=== PATIENT | male | born 1970 | race African-American/Black ===

== ENCOUNTER → 2023-10-11 09:28 | Outpatient (CLI) | payer OTHER, SELFPAY ==
[2023-10-11 10:16] LABS: Add Manual Diff / Slide Review NO; Basophils Absolute Auto 0 /uL (0-100); Basophils Percent Auto 0.6 % (0-2); Eosinophils Absolute Auto 500 /uL (0-450); Eosinophils Percent Auto 7.7 % (2-4); Hematocrit 39.8 % (41-53); Hemoglobin 13.5 g/dL (13.5-17.5); Lymphocytes Absolute Auto 1200 /uL (1100-4500); Lymphocytes Percent Auto 18.6 % (25-40); Mean Corpuscular HGB Conc 33.9 % (30-36); Mean Corpuscular Hemoglobin 29.9 PG (26-34); Mean Corpuscular Volume 88.1 fL (80-100); Monocytes Absolute Auto 500 /uL (0-900); Monocytes Percent Auto 8.6 % (3-14); Neutrophils Absolute Auto 4000 /uL (1500-7000); Neutrophils Percent Auto 64.5 % (50-75); Platelet Count 274 X10^3/uL (150-400); Red Blood Cell Count 4.51 X10^6/uL (4.5-5.9); Red Cell Distribution Width 13.9 % (11.6-14.8); White Blood Cell Count 6.3 X10^3/uL (4.5-11.0)
[2023-10-11 10:39] LABS: Hemoglobin A1C% w Est Avg Glu 4.9 % (4.0-6.0)
[2023-10-11 10:49] LABS: Alanine Aminotransferase 22 IU/L (<50); Albumin 3.7 g/dL (3.5-5.0); Albumin Globulin Ratio 1.2 (1.0-2.8); Alkaline Phosphatase 71 U/L (38-126); Aspartate Aminotransferase 21 IU/L (17-59); BUN Creatinine Ratio 19.8 (6-22); Bilirubin Total 0.5 mg/dL (0.2-1.3); Blood Urea Nitrogen 21 mg/dL (9-20); Calcium 9.4 mg/dL (8.4-10.2); Carbon Dioxide 31 mmol/L (22-32); Chloride 101 mmol/L (98-107); Cholesterol 159 mg/dL (140-199); Estimated Glomerular Filt Rate > 60 mL/min (>60); Globulin 3.2 g/dL (1.7-4.1); Glucose 93 mg/dL (70-100); HDL Cholesterol 38 mg/dL (40-60); HEMOLYSIS < 15 (0-50); LDL Cholesterol Calculated 91 mg/dL (<100); Potassium 4.1 mmol/L (3.4-5.1); Sodium 137 mmol/L (137-145); Total Protein 6.9 g/dL (6.3-8.2); Triglycerides 150 mg/dL (35-150); Uric Acid 9.5 mg/dL (3.5-8.5)
[2023-10-11 11:01] LABS: Vitamin D 25 Hydroxy (D3) 16.4 ng/mL (30.0-100.0)
[2023-10-11 12:24] LABS: Microalbumin Urine Random 6.1 mg/dL (0-1.6)
[2023-10-11 12:26] LABS: Creatinine Urine Random 58.7 mg/dL; Microalbumi Creatinin Ratio Ur 103.9 ug/mg CR (<30)
== END ==
PROVIDERS: PCP Family Medicine; Referring Provider Family Medicine; Visit Provider Family Medicine
DX: I10 Essential (primary) hypertension (principal); E66.9 Obesity, unspecified; M10.9 Gout, unspecified; E55.9 Vitamin D deficiency, unspecified
CPT/HCPCS: 36415; 80053; 80061; 82043; 82306; 82570; 83036; 84550; 85025

== ENCOUNTER 2024-06-23 10:28 | Emergency (ER) | payer OTHER, MEDICAID, SELFPAY ==
[2024-06-23 10:31] VITALS: PULSE 70; O2SAT 100
[2024-06-23 10:33] VITALS: BP 180/115; PULSE 69; RESP 16; TEMP 36.7; O2SAT 100; BMI 35.2
[2024-06-23 11:00] VITALS: BP 170/99; PULSE 69; O2SAT 97
[2024-06-23] MEDS: KETOROLAC 30 MG/ML VIAL 15 MG IV (11:17)
[2024-06-23] MEDS: DEXAMETHASONE 10 MG/ML VIAL IV (11:17)
[2024-06-23 11:30] VITALS: PULSE 65; O2SAT 100
[2024-06-23 11:31] VITALS: BP 149/82; PULSE 71; O2SAT 100
--- NOTE | 2024-06-23 11:52 | ED_ITS ---
HPI - Back Pain/Injury General Chief Complaint: Back Pain/Injury Stated Complaint: GLF Time Seen by Provider: 06/23/24 10:34 Source: patient and EMS History of Present Illness HPI Narrative: 54-year-old gentleman with a history of hypertension, hyperlipidemia occasional episodes of back pain who comes in for severe back pain. On the morning of June 17, patient was at work, he works for [employer], bent over to lift up a package and felt a pop in his low back. Was tender but he was able to continue working for for 5 more hours until the pain was too much to continue driving, lifting turning and twisting. He was seen in urgent care on June 18 and prescribed cyclobenzaprine which along with Tylenol and Advil does not seem to be very effective. This morning he was bending over and again felt a ?pop? pop in the same area with pain severe enough that he fell to the floor and was unable to get up off the floor. Medics were required to assist. You received fentanyl in route. Is still having significant pain. Describes only pain with no numbness or tingling. He states that the pain does wrap around his left hip into his upper thigh. He has not had any difficulty walking due to weakness or numbness, the mobility issues are pain related only. Related Data Previous Rx's Medication Instructions Recorded indomethacin 50 mg capsule 50 mg PO TID #30 caps 08/23/23 amlodipine 10 mg tablet 10 mg PO DAILY #90 tabs 05/23/24 atorvastatin 40 mg tablet 40 mg PO DAILY #90 tabs 05/23/24 hydrochlorothiazide 12.5 mg tablet 12.5 mg PO DAILY #90 tabs 05/23/24 lisinopril 40 mg tablet 40 mg PO DAILY #90 tabs 05/23/24 cyclobenzaprine 10 mg tablet 10 mg PO TID PRN muscle spasm #20 06/19/24 tabs dexamethasone 4 mg tablet 10 mg (2.5 x 4 mg) PO DAILY #5 tabs 06/23/24 oxycodone-acetaminophen 5 mg-325 1 tab PO Q6H PRN pain #20 tabs 06/23/24 mg tablet Allergies Allergy/AdvReac Type Severity Reaction Status Date / Time No Known Drug Allergies Allergy Verified 10/23/23 15:26 Review of Systems Review of Systems Narrative: Pertinent positive and negative findings as per HPI Patient History Medical History (Updated 06/23/24 @ 12:02 by Brittney Guerra MD) Gout Essential hypertension Social History marital status: number of children: 2 household members: family lives independently: Yes occupational status: unemployed Smoking Status: Former smoker Smokeless tobacco user: other (Vape since age 43) alcohol intake: current (1-2 servings per month, is alcoholic and sober since 2016 so generally abstains for her sake) substance use type: marijuana (Smokes daily, 1/8 oz every 2 weeks) during the past year weight has: remained stable well-balanced diet: about half the time daily servings fruits/ve-4 eating out: 1-3 times/week Type(s) of exercise: walking, regular exercise and additional (drumming) frequency: 3-4 times per week Smoking Status: Former smoker Substance Use Type: does not use Exam Initial Vital Signs Initial Vital Signs: Vital Signs Temperature 98.0 F 06/23/24 10:33 Pulse Rate 69 06/23/24 10:33 Respiratory Rate 16 06/23/24 10:33 Blood Pressure 180/115 H 06/23/24 10:33 Pulse Oximetry 100 06/23/24 10:33 Oxygen Delivery Method Room Air 06/23/24 10:33 General: Healthy appearing, in significant distress. Able to give a complete and coherent history. Well-nourished well-developed Respiratory: Full and symmetrical air movement Cardiac: Regular rate and rhythm no murmurs no bruits Abdomen: Soft, nontender, good bowel tones, no flank pain Spine: No midline point tenderness, he does have some minor paraspinous muscle spasm on the left side Skin: Warm and dry, no rashes Neurologic: Grossly neurologically intact with no obvious asymmetries or abnormalities Extremities: No trauma, well perfused, normal reflexes bilaterally knees and ankles Psych: Cooperative, appropriate insight and affect Course Orders Ordered: Discontinued Medications Dexamethasone (Dexamethasone 10 Mg/Ml Vial) 10 mg IV NOW ONE Stop: 06/23/24 11:07 Last Admin: 06/23/24 11:17 Dose: 10 mg Documented By: BS Ketorolac Tromethamine (Ketorolac 30 Mg/Ml Vial) 15 mg IV NOW ONE Stop: 06/23/24 11:07 Last Admin: 06/23/24 11:17 Dose: 15 mg Documented By: BS Vital Signs Vital signs: Vital Signs - 8 hr 06/23/24 10:33 Temperature 98.0 F Pulse Rate 69 Respiratory Rate 16 Blood Pressure 180/115 H Pulse Oximetry 100 Oxygen Delivery Method Room Air MDM - Back Pain/Injury MDM Narrative Medical decision making narrative: CC: Severe back pain Complicating co-morbidities: Initial episode on June 16, recurrent episode this morning, hypertension, hyperlipidemia Data collected from: patient and Social determinants of health that may influence the patients condition: This is an L and I injury Differential considered: Mechanical back pain, disc rupture, cauda equina syndrome, epidural abscess Exam documented above, pertinent findings include: Patient has minor paraspinous spasm along the left lumbar area. He does not have significant pain exacerbated with straight leg raising or external rotation of the hip. Lower extremity reflexes and sensation are completely intact Imaging studies independently reviewed: Reviewed with the patient why x-rays, CT scans and MRI are not indicated at this time. He has no ?red flag? concerns such as cancer history, trauma, drug use, fever. Patient is express understanding Treatments: IV dexamethasone, IV Toradol Discussion: 54-year-old gentleman with acute low back strain. Initial injury was at work on June 16. Bending over today I believe he likely re-injured the same area. Ibuprofen, Tylenol and cyclobenzaprine have not been effective in controlling his pain. We discussed additional options at this point. We will have him complete 2 additional days of 10 mg of dexamethasone. He is given Percocet to help with direct pain. We had in-depth discussion regarding use of narcotics for acute back pain being helpful for couple of days and for chronic back pain being significant risk for addiction. He does have a follow up appointment with his primary care physician in 48 hours. At this point there was no evidence of fractures, epidural abscess, cauda equina syndrome, acute neurologic findings or any reasons for blood work, additional imaging or hospitalization. Discharge Plan Departure Patient Disposition: Home Clinical Impression: Acute low back pain with left-sided sciatica Qualifiers: Back pain laterality: left Qualified Code(s): M54.42 - Lumbago with sciatica, left side Instructions: DI for Back Pain With Sciatica Activity Restrictions/Additional Instructions: Thank you for coming in today. I am sorry that your hurting as much as you are Your description sounds like an acute back strain. You do not have any of the ?red flag findings? such as falling, car accidents, history of cancer, fevers, history of IV drug use that would suggest any imaging would be helpful at this time. Based on your level of pain I suspect that you have strained muscles that are now pinching on the nerve on the left side around the L1 and L2 area Using 400 mg of ibuprofen (2 [id number] pills) and 1 Tylenol every 6 hours can be very helpful in controlling pain. For severe pain using 400 mg of ibuprofen and 1 Percocet we will be helpful. Percocet is a narcotic and should be taken with MiraLax to avoid constipation. Narcotic can be helpful with acute pain in the short term but is not helpful with chronic pain. The vast majority of people who suffer from injuries like this are going to feel better within 6 weeks Please do keep your appointment with your primary care physician in 48 hours. If you find that you are getting worse or develop any new symptoms, please feel free to return to the emergency department for further evaluation. Prescriptions for dexamethasone to take for the next 2 days to help with the acute inflammation as well as Percocet to help with the acute pain has been electronically transmitted to [facility] in [place] Prescriptions: New oxycodone-acetaminophen 5-325 mg tablet 1 tab PO Q6H PRN (Reason: pain) Qty: 20 0RF dexamethasone 4 mg tablet 10 mg PO DAILY Qty: 5 0RF No Action cyclobenzaprine 10 mg tablet 10 mg PO TID PRN (Reason: muscle spasm) Qty: 20 0RF indomethacin 50 mg capsule 50 mg PO TID Qty: 30 1RF Rx Instructions: administer with food or milk; take until 1-2 days after symptom resolution amlodipine 10 mg tablet 10 mg PO DAILY Qty: 90 1RF hydrochlorothiazide 12.5 mg tablet 12.5 mg PO DAILY Qty: 90 1RF atorvastatin 40 mg tablet 40 mg PO DAILY Qty: 90 1RF lisinopril 40 mg tablet 40 mg PO DAILY Qty: 90 1RF Referrals: He Charles MD [Primary Care Provider] - Stand Alone Forms: Patient Portal/API/Survey
[2024-06-23 12:00] VITALS: BP 144/82; PULSE 66; O2SAT 99
== END 2024-06-23 12:17 | disposition home or self-care (01) ==
PROVIDERS: Emergency Provider Emergency Medicine; PCP Family Medicine
DX: M54.42 Lumbago with sciatica, left side (principal); X58.XXXA Exposure to other specified factors, initial encounter; W18.30XA Fall on same level, unspecified, initial encounter
CPT/HCPCS: 96374; 96375; 99283; 99284; J1100; J1885

== ENCOUNTER → 2024-07-09 12:58 | Outpatient (CLI) | payer OTHER, SELFPAY ==
--- NOTE | 2024-07-09 13:00 | DI.RAD.S_ITS ---
PROCEDURE: XR LUMBAR SPINE 2-3V INDICATIONS: unresolved pain after injury TECHNIQUE: 3 views of the lumbar spine were acquired. COMPARISON: None. FINDINGS: Bones: 5 [id number] vertebrae are present. There is mild straightening of the normal lumbar lordosis. There is moderate degenerative disc disease at L3-4, L4-5 and L5-S1 levels. There is a mild grade 1 retrolisthesis of the L5 vertebral body with respect to both L4 and S1. There is moderate facet arthropathy involving the L4-5 and L5-S1 levels. Soft tissues: Overlying bowel gas pattern is normal. No suspicious soft tissue calcifications. IMPRESSION: Moderately advanced degenerative disc and degenerative facet arthropathy involving the lower lumbar spine. Dictated by: Shelby Sanderson M.D. on 07/09/2024 at 14:47 Approved by: Shelby Sanderson M.D. on 07/09/2024 at 14:50
== END ==
PROVIDERS: PCP Family Medicine; Referring Provider Family Medicine; Visit Provider Family Medicine
DX: M51.16 Intervertebral disc disorders with radiculopathy, lumbar region (principal); M51.17 Intervertebral disc disorders with radiculopathy, lumbosacral region; M47.26 Other spondylosis with radiculopathy, lumbar region; M47.27 Other spondylosis with radiculopathy, lumbosacral region
CPT/HCPCS: 72100